=== PATIENT | male | born 1970 | race Caucasian/White ===

== ENCOUNTER 2017-04-02 09:08 | Emergency (ER) | payer OTHER ==
[2017-04-02 09:20] VITALS: RESP 18; TEMP 97.7
--- NOTE | 2017-04-02 09:21 | CPEKG ---
Heart Rate: 62 RR Interval: 968 P-R Interval: 140 QRSD Interval: 96 QT Interval: 404 QTC Interval: 411 P [place]: 65 QRS [place]: 73 T Wave [place]: 31 EKG Severity - NORMAL ECG - EKG Impression: SINUS RHYTHM Electronically Signed By: Rox Caal 02-Apr-2017 15:14:11
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
[2017-04-02 10:13] LABS: % IMMATURE GRANULYOCYTES 0.3 % (0.0-1.1); ABSOLUTE IMMATURE GRANULOCYTES 0.02 10^3/uL (0.00-0.10); ADD DIFF? NO; ADD MORPH? NO; ADD SCAN? NO; ATYPICAL LYMPHOCYTE FLAG 0 (0-99); FRAGMENT RBC FLAG 0 (0-99); HEMATOCRIT 35.3 % (40.0-51.0); LEFT SHIFT FLG 0 (0-99); LIPEMIA HEMOLYSIS FLAG 90 (0-99); MEAN CELL HEMOGLOBIN 32.8 pg (27.9-34.1); MEAN CELL HEMOGLOBIN CONCENTR. 36.8 g/dL (32.4-36.7); MEAN CELL VOLUME 89.1 fL (81.5-99.8); MEAN PLATELET VOLUME 9.2 fL (8.7-11.7); PLATELET CLUMPS FLAG 0 (0-99); PLATELET COUNT 308 10^3/uL (150-400); RED BLOOD CELL COUNT 3.96 10^6/uL (4.40-6.38); RED CELL DISTRIBUTION WIDTH 13.5 % (11.5-15.2)
[2017-04-02 10:23] LABS: ANION GAP 16 mEq/L (8-16); CALCIUM 9.9 mg/dL (8.5-10.4); CARBON DIOXIDE 23 mEq/l (22-31); CHLORIDE 102 mEq/L (97-110); CREATININE 1.1 mg/dL (0.7-1.3); GLOMERULAR FILTRATION RATE > 60; GLUCOSE 89 mg/dL (70-100); POTASSIUM 4.2 mEq/L (3.5-5.2); SODIUM 141 mEq/L (134-144)
[2017-04-02 11:13] VITALS: BP 126/82; PULSE 68; O2SAT 99
== END 2017-04-02 11:16 | disposition home or self-care (01) ==
LOC: EDUNIT#
DX: S29.9XXA Unspecified injury of thorax, initial encounter (principal); D64.9 Anemia, unspecified; J45.909 Unspecified asthma, uncomplicated; V49.59XA Passenger injured in collision with other motor vehicles in traffic accident, initial encounter; Y92.410 Unspecified street and highway as the place of occurrence of the external cause